=== PATIENT | female | born 1955 | race African-American/Black ===

== ENCOUNTER 2016-09-27 00:02 | Emergency (ER) | payer BC ==
[~2016-09-27] VITALS: Ht 170.2 cm; Wt 93.7 kg
[~2016-09-27 00:02] MED LIST: AFRICAN MANGO PO; AMPHETAMINE SAL10 MG PO; APRESOLINE50 M1 PO; ASPIRIN81 M1 PO; ASPIRIN81 M2 PO; ATARAX,VISTARIL50 MG PO; ATORVASTATIN CA40 MG PO; AVAPRO150 MG PO; BEE WITH C1 EACH PO; BIOTIN300 MCG PO; BLOOD BUILDER PO; CALCIUM 500 +1 EAC3 PO; CALCIUM ACETAT667 M2 PO; CALCIUM ACETAT667 MG PO; CARAFATE1 GM PO; CARDURA XL4 MG PO; CARDURA4 MG PO; CARVEDILOL25 MG PO; CARVEDILOL3.125 MG PO; CATAPRES0.1 MG PO; CLINDAMYCIN HC150 MG PO; CLONIDINE HCL0.1 MG PO; CLOPIDOGREL75 MG PO; CO Q-10100 MG PO; CO Q-10200 MG PO; COLACE100 MG PO; COMPLEX B-1001 EACH PO; CORDYCEPS PO; COREG25 M1 PO; COREG25 MG PO; DIALYVITE 3,001 EACH PO; DIALYVITE 5000 T5 MG PO; DILAUDID2 MG PO; ELIPHOS667 MG PO; EMLA 30 GM30 GM TP; FENOFIBRATE40 MG PO; FENOFIBRATE48 MG PO; FERROUS SULFAT325 MG PO; FLAGYL500 MG PO; FLAX OIL1000 MG PO; FOLIC ACID0.4 MG PO; GABAPENTIN100 MG PO; GABAPENTIN300 MG PO; GARLIC1 EACH PO; GINKGO BILOBA60 M1 PO; GINKGO60 MG PO; HUMALOG; HUMALOG100 UNIT/1 SC; HUMULIN N100 UNIT/2 SC; HYDRALAZINE HCL50 M1 PO; HYDRALAZINE HCL50 MG PO; HYDROXYZINE HCL25 MG PO; HYZAAR 100-21 TABLET PO; IMDUR30 MG PO; INDOCIN25 MG PO; INTEGRA CAPSUL1 EACH PO; IRON240 MG PO; ISOSORBIDE DINI10 MG PO; ISOSORBIDE MONO30 MG PO; Imdur PO; KLOR-CON M2020 MEQ PO; KLOR-CON20 MEQ PO; KRILL OIL500 MG PO; LANOXIN,DIGIT0.25 MG PO; LASIX20 MG PO; LASIX40 MG PO; LIDOCAINE700 MG TD; LIVIXIL PAK 2.1 EACH TP; LYRICA50 MG PO; Lasix PO; Lipitor PO; MAGNESIUM GLUC200 MG PO; MAGNESIUM250 MG PO; MORPHINE SULFAT15 M1 PO; MULTI VITAMIN; MULTI-VITAMIN1 EAC4 PO; MULTIPLE VITAM1 EACH PO; MULTIVITAMIN1 EAC1 PO; MUPIROCIN15 GM TP; MYCOSTATIN 100,60 ML PO; NEPHRO-VITE,1 TABLET PO; NEURONTIN100 MG PO; NITROSTAT0.4 MG SL; NOVOLOG PE100 UNITS/ SC; OXYCODONE HCL5 M1 PO; PANTOPRAZOLE SO40 MG PO; PERCOCET 5/31 TABLET PO; PLAVIX75 MG PO; PRILOSEC40 MG PO; PROBIOTIC FORM1 EACH PO; PROMETHAZINE HC25 M1 PO; PROTONIX40 MG PO; PROVENTIL,2.5 MG/0.5 IH; Plavix PO; RENVELA800 MG PO; SENSIPAR30 MG PO; SENSIPAR60 MG PO; SERTRALINE HCL100 MG PO; SIMVASTATIN40 MG PO; SPIRONOLACTONE25 MG PO; SPIRULINA500 MG PO; TRAMADOL HCL50 MG PO; ULTRAM50 MG PO; VITAMIN B-121000 MC1 SL; VITAMIN B-121000 MCG PO; VITAMIN C PO; VITAMIN C1000 MG PO; VITAMIN D31000 UNI2 PO; VITAMIN D31000 UNIT PO; WELLBUTRIN XL150 MG PO; WELLBUTRIN XL300 MG PO; Wellbutrin XL PO; ZANTAC150 MG PO; ZEMPLAR1 MCG PO; ZOFRAN4 MG PO; ZOLOFT100 M1 PO; ZOLOFT100 MG PO; [UNRECOGNIZED DRUG - OTHER]; [UNRECOGNIZED DRUG - OTHER] PO; [UNRECOGNIZED DRUG - OTHER] PO; [UNRECOGNIZED DRUG - OTHER] PO; [UNRECOGNIZED DRUG - OTHER] PO; [UNRECOGNIZED DRUG - OTHER] PO; [UNRECOGNIZED DRUG - OTHER] PO; [UNRECOGNIZED DRUG - OTHER] PO; [UNRECOGNIZED DRUG - OTHER] PO; [UNRECOGNIZED DRUG - OTHER] PO; [UNRECOGNIZED DRUG - OTHER] PO; [UNRECOGNIZED DRUG - OTHER] PO; [UNRECOGNIZED DRUG - OTHER] PO; [UNRECOGNIZED DRUG - OTHER] PO; [UNRECOGNIZED DRUG - OTHER] SL; [UNRECOGNIZED DRUG - OTHER] SL; [UNRECOGNIZED DRUG - REMARK]; [UNRECOGNIZED DRUG - REMARK]; [UNRECOGNIZED DRUG - REMARK]; [UNRECOGNIZED DRUG - REMARK]; [UNRECOGNIZED DRUG - REMARK]; [UNRECOGNIZED DRUG - REMARK]; [UNRECOGNIZED DRUG - REMARK]; [UNRECOGNIZED DRUG - REMARK]; [UNRECOGNIZED DRUG - REMARK]; [UNRECOGNIZED DRUG - REMARK]; [UNRECOGNIZED DRUG - REMARK]
[2016-09-27 00:47] LABS: HEMATOCRIT 35.8 % (36.0-46.0); MCH 29.4 PG (29.0-34.0); MCHC 32.1 G/DL (30.0-36.0); MCV 91.6 FL (83-99); MEAN PLAT.VOLUME 10.8 uM^3 (9.5-12.4); PLATELET COUNT 167 K/uL (156-360); RBC DIS.WIDTH-CV 16.2 % (11.8-14.6); RBC DIS.WIDTH-SD 53.6 % (39-53); RED BLOOD COUNT 3.91 M/uL (3.80-5.20); WHITE BLOOD COUNT 4.9 K/uL (4.1-10.2)
[2016-09-27 01:00] LABS: CHLORIDE 99 mEq/L (99-109); POTASSIUM 3.7 mEq/L (3.7-5.4); SODIUM 143 mEq/L (136-147)
[2016-09-27 01:02] LABS: GLUCOSE 241 mg/dL (70-99)
[2016-09-27 01:03] LABS: ANION GAP 18 MEQ/L (2-14)
[2016-09-27 01:06] LABS: GFR ESTIMATE (CALCULATED) 5 mL/min/
[2016-09-27 01:07] LABS: UREA NITROGEN (BUN) 54 mg/dL (9-23)
[2016-09-27 02:48] VITALS: BP 121/68
== END 2016-09-27 02:49 | disposition home or self-care (01) ==
LOC: EME 00:02
PROVIDERS: Emergency Medicine
DX: T82.838A Hemorrhage due to vascular prosthetic devices, implants and grafts, initial encounter (principal); D64.9 Anemia, unspecified; I13.0 Hypertensive heart and chronic kidney disease with heart failure and stage 1 through stage 4 chronic kidney disease, or unspecified chronic kidney disease; N18.9 Chronic kidney disease, unspecified; I50.9 Heart failure, unspecified; Z99.2 Dependence on renal dialysis; E11.22 Type 2 diabetes mellitus with diabetic chronic kidney disease; I25.2 Old myocardial infarction; E78.5 Hyperlipidemia, unspecified; K21.9 Gastro-esophageal reflux disease without esophagitis; Z79.4 Long term (current) use of insulin
CPT/HCPCS: 80048; 85027; 99281; 99284

== ENCOUNTER 2016-10-28 10:58 | Day surgery (SDC) | payer BC ==
[~2016-10-28] VITALS: Ht 170.2 cm; Wt 93.0 kg
[~2016-10-28 10:58] MED LIST changes: -ASPIRIN81 M2 PO; +AURYXIA PO; +BIOTIN 5000MCG PO; +CHILD ASPIRIN81 M1 PO; -CLOPIDOGREL75 MG PO; -HUMALOG; +HUMALOG100 UNIT/2 SC; +LIPITOR40 MG PO; +NEURONTIN300 MG PO; +PROAMATINE10 MG PO; +RENA PLEX D PO
[2016-10-28 12:40] VITALS: BP 117/67
[2016-10-28 12:49] LABS: POINT-OF-CARE METER ID UU13113694
[2016-10-28 14:05] LABS: METH RESISTANT S AUREUS PCR NEGATIVE (NEGATIVE)
[2016-10-28 14:08] LABS: PROBE CHECK PASS; SPECIMEN PROCESSING CONTROL PASS
[2016-10-28 14:25] LABS: POINT-OF-CARE METER ID UU13113675
[2016-10-28 15:40] VITALS: BP 150/78
[2016-10-28 17:07] VITALS: BP 134/69
== END 2016-10-28 17:15 | disposition home or self-care (01) ==
LOC: SDC 10:58
PROVIDERS: Orthopaedic Surgery Hand Surgery
DX: G56.02 Carpal tunnel syndrome, left upper limb (principal); G56.22 Lesion of ulnar nerve, left upper limb; I13.0 Hypertensive heart and chronic kidney disease with heart failure and stage 1 through stage 4 chronic kidney disease, or unspecified chronic kidney disease; E11.22 Type 2 diabetes mellitus with diabetic chronic kidney disease; N18.9 Chronic kidney disease, unspecified; I50.9 Heart failure, unspecified; Z79.4 Long term (current) use of insulin; Z79.82 Long term (current) use of aspirin; Z88.2 Allergy status to sulfonamides
CPT/HCPCS: 71020; 82948; 87641; J0690; J2405; J3010; S0020

== ENCOUNTER 2017-06-09 23:40 | Emergency (ER) | payer BC ==
[~2017-06-09] VITALS: Ht 170.2 cm; Wt 92.2 kg
[2017-06-10 02:57] VITALS: BP 135/96
== END 2017-06-10 03:07 | disposition home or self-care (01) ==
LOC: EME 23:40
DX: S40.011A Contusion of right shoulder, initial encounter (principal); S70.01XA Contusion of right hip, initial encounter; E78.5 Hyperlipidemia, unspecified; I12.9 Hypertensive chronic kidney disease with stage 1 through stage 4 chronic kidney disease, or unspecified chronic kidney disease; E11.22 Type 2 diabetes mellitus with diabetic chronic kidney disease; N18.4 Chronic kidney disease, stage 4 (severe); Z99.2 Dependence on renal dialysis; I25.2 Old myocardial infarction; Z95.1 Presence of aortocoronary bypass graft; Z88.2 Allergy status to sulfonamides; Z79.4 Long term (current) use of insulin; Z79.02 Long term (current) use of antithrombotics/antiplatelets; Z79.82 Long term (current) use of aspirin; W17.89XA Other fall from one level to another, initial encounter; Y92.410 Unspecified street and highway as the place of occurrence of the external cause
CPT/HCPCS: 73030; 73502; 99281; 99284

== ENCOUNTER 2017-09-23 07:08 | Day surgery (SDC) | payer BC ==
[~2017-09-23] VITALS: Ht 170.2 cm; Wt 93.0 kg
[~2017-09-23 07:08] MED LIST changes: -AURYXIA PO; +FERRIC CITRATE210 MG PO; -NEURONTIN300 MG PO; +RENAPLEX-D TAB1 EACH PO
== END 2017-09-23 18:05 | disposition home or self-care (01) ==
LOC: CATH 07:08
PROVIDERS: Internal Medicine Interventional Cardiology
DX: I25.119 Atherosclerotic heart disease of native coronary artery with unspecified angina pectoris (principal); I42.9 Cardiomyopathy, unspecified; I34.0 Nonrheumatic mitral (valve) insufficiency; Z95.1 Presence of aortocoronary bypass graft; I13.2 Hypertensive heart and chronic kidney disease with heart failure and with stage 5 chronic kidney disease, or end stage renal disease; I50.22 Chronic systolic (congestive) heart failure; E11.22 Type 2 diabetes mellitus with diabetic chronic kidney disease; N18.6 End stage renal disease; Z99.2 Dependence on renal dialysis; Z79.4 Long term (current) use of insulin; Z79.02 Long term (current) use of antithrombotics/antiplatelets; E78.2 Mixed hyperlipidemia; Z79.82 Long term (current) use of aspirin; Z82.49 Family history of ischemic heart disease and other diseases of the circulatory system
CPT/HCPCS: 82948; 93005; C1769; C1887; C1894; J1644; J2250; J2405; J3010

== ENCOUNTER 2017-09-25 14:28 | Inpatient (IN) | payer BC ==
[~2017-09-25] VITALS: Ht 170.2 cm; Wt 94.5 kg
[2017-09-25 15:24] LABS: BASOPHIL (%) 0.1 % (0-1); EOSINOPHIL (%) 1.9 % (0-5); EOSINOPHIL COUNT 0.2 K/uL (0-0.3); HEMATOCRIT 21.9 % (36.0-46.0); IMMATURE GRANULOCYTE (%) 0.5 % (0.0-0.7); LYMPHOCYTE (%) 19.2 % (15-42); LYMPHOCYTE COUNT 1.5 K/uL (1.0-2.8); MCH 29.1 PG (29.0-34.0); MCHC 32.4 G/DL (30.0-36.0); MCV 89.8 FL (83-99); MONOCYTE (%) 9.9 % (3-12); MONOCYTE COUNT 0.8 K/uL (0-0.8); NEUTROPHIL (%) 68.4 % (45-76); NEUTROPHIL COUNT 5.3 K/uL (1.8-6.4); PLATELET COUNT 137 K/uL (156-360); RBC DIS.WIDTH-CV 16.2 % (11.8-14.6); RBC DIS.WIDTH-SD 53.3 % (39-53); WHITE BLOOD COUNT 7.8 K/uL (4.1-10.2)
[2017-09-25 15:25] LABS: HEMOGLOBIN 7.1 G/DL (11.9-15.5); RED BLOOD COUNT 2.44 M/uL (3.80-5.20)
[2017-09-25 15:33] LABS: INTER. NORMALIZED RATIO 1.3
[2017-09-25 15:34] LABS: ALBUMIN 4.1 g/dL (3.2-4.8); CHLORIDE 94 mEq/L (99-109); POTASSIUM 4.3 mEq/L (3.7-5.4); SODIUM 137 mEq/L (136-147)
[2017-09-25 15:35] LABS: MAGNESIUM 2.1 mg/dL (1.3-2.7)
[2017-09-25 15:36] LABS: PTT 29.2 SEC (25-37)
[2017-09-25 15:37] LABS: GLUCOSE 164 mg/dL (70-99); TOTAL PROTEIN 7.2 g/dL (6.4-8.3)
[2017-09-25 15:39] LABS: TOTAL BILIRUBIN 0.4 mg/dL (0.0-1.0)
[2017-09-25 15:40] LABS: ALKALINE PHOSPHATASE 216 IU/L (3-129); CREATININE 8.7 mg/dL (0.6-1.3); GFR ESTIMATE (CALCULATED) 6 mL/min/
[2017-09-25 15:41] LABS: UREA NITROGEN (BUN) 45 mg/dL (9-23)
[2017-09-25 15:42] LABS: AST (GOT) 14 IU/L (2-34)
[2017-09-25 15:43] LABS: ALT (GPT) 11 IU/L (3-49)
[2017-09-25 15:47] LABS: TROP-I INTERPRETATION NEGATIVE; TROPONIN-I 0.09 ng/mL (0.0-0.30)
[2017-09-25] MEDS ORDERED: HUMULIN N100 UNIT/2 SC (16:52)
[2017-09-25] MEDS ORDERED: OXYCODONE-ACET1 EACH PO (16:56)
[2017-09-25] MEDS ORDERED: LIDOCAINE-PRIL1 EACH TP (16:57)
[2017-09-25 23:00] VITALS: BP 134/63
[2017-09-25 23:06] LABS: TROP-I INTERPRETATION NEGATIVE
[2017-09-26 01:17] LABS: HEMATOCRIT 22.2 % (36.0-46.0); HEMOGLOBIN 7.3 G/DL (11.9-15.5); MCV 89.2 FL (83-99)
[2017-09-26 03:15] VITALS: BP 138/60
[2017-09-26 06:29] LABS: HEMOGLOBIN 7.1 G/DL (11.9-15.5); MCH 28.7 PG (29.0-34.0); MCHC 32.3 G/DL (30.0-36.0); MCV 89.1 FL (83-99); PLATELET COUNT 152 K/uL (156-360); RBC DIS.WIDTH-CV 16.2 % (11.8-14.6); RBC DIS.WIDTH-SD 52.4 % (39-53); RED BLOOD COUNT 2.47 M/uL (3.80-5.20); WHITE BLOOD COUNT 7.1 K/uL (4.1-10.2)
[2017-09-26 06:45] LABS: TROP-I INTERPRETATION NEGATIVE; TROPONIN-I 0.12 ng/mL (0.0-0.30)
[2017-09-26 06:50] LABS: CHLORIDE 92 MEQ/L (99-109); CREATININE 9.4 MG/DL (0.6-1.3); GFR ESTIMATE (CALCULATED) 5 mL/min/; POTASSIUM 4.6 MEQ/L (3.7-5.4); SODIUM 136 MEQ/L (136-147); UREA NITROGEN (BUN) 50 mg/dL (9-23)
[2017-09-26 07:03] LABS: GLUCOSE 77 mg/dL (70-99)
[2017-09-26 07:07] VITALS: BP 127/61
[2017-09-26 12:45] LABS: HEMATOCRIT 23.4 % (36.0-46.0); HEMOGLOBIN 7.4 G/DL (11.9-15.5); MCV 89.7 FL (83-99)
[2017-09-26 12:52] VITALS: BP 117/60
[2017-09-26 15:09] VITALS: BP 119/57
[2017-09-26 20:30] VITALS: BP 143/75
[2017-09-26 21:38] LABS: HEMATOCRIT 20.5 % (36.0-46.0); MCV 89.1 FL (83-99)
[2017-09-26 21:40] LABS: HEMOGLOBIN 6.5 G/DL (11.9-15.5)
[2017-09-27 00:49] VITALS: BP 124/66
[2017-09-27 03:53] VITALS: BP 127/64
[2017-09-27 09:01] LABS: ALBUMIN 4.1 G/DL (3.2-4.8); CHLORIDE 90 MEQ/L (99-109); POTASSIUM 4.7 MEQ/L (3.7-5.4); SODIUM 134 MEQ/L (136-147)
[2017-09-27 09:08] LABS: GFR ESTIMATE (CALCULATED) 4 mL/min/; PHOSPHORUS 4.7 mg/dL (2.5-4.9); UREA NITROGEN (BUN) 67 mg/dL (9-23)
[2017-09-27 09:13] LABS: CREATININE 11.8 MG/DL (0.6-1.3); GLUCOSE 115 mg/dL (70-99)
[2017-09-27 09:14] LABS: HEMATOCRIT 19.8 % (36.0-46.0); MCV 89.2 FL (83-99)
[2017-09-27 09:16] LABS: HEMOGLOBIN 6.3 G/DL (11.9-15.5)
[2017-09-27 12:25] VITALS: BP 121/57
[2017-09-27 13:29] LABS: HEMATOCRIT 30.6 % (36.0-46.0); MCV 86.7 FL (83-99)
[2017-09-27] MEDS ORDERED: FENTORA400 MCG BC (13:58)
[2017-09-27 14:21] VITALS: BP 121/57
[2017-09-27] MEDS ORDERED: DURAGESIC25 MCG TD (15:43)
== END 2017-09-27 14:28 | disposition home or self-care (01) | DRG 919 ==
LOC: EME 14:28 → EDOF 21:04 → 2EAST 21:04 → ENRESERV 21:07 → 2EAST 22:45
PROVIDERS: Emergency Medicine; Hospitalist; Internal Medicine
PROC: 5A1D70Z Performance of Urinary Filtration, Intermittent, Less than 6 Hours Per Day (ICD-10-PCS; principal; 2017-09-25)
PROC: 30233N1 Transfusion of Nonautologous Red Blood Cells into Peripheral Vein, Percutaneous Approach (ICD-10-PCS; 2017-09-27)
DX: N99.841 Postprocedural hematoma of a genitourinary system organ or structure following other procedure (principal); Y83.8 Other surgical procedures as the cause of abnormal reaction of the patient, or of later complication, without mention of misadventure at the time of the procedure; E78.5 Hyperlipidemia, unspecified; I13.2 Hypertensive heart and chronic kidney disease with heart failure and with stage 5 chronic kidney disease, or end stage renal disease; I50.9 Heart failure, unspecified; N28.89 Other specified disorders of kidney and ureter; E11.22 Type 2 diabetes mellitus with diabetic chronic kidney disease; N18.6 End stage renal disease; D62 Acute posthemorrhagic anemia; D63.1 Anemia in chronic kidney disease; I25.10 Atherosclerotic heart disease of native coronary artery without angina pectoris; I25.5 Ischemic cardiomyopathy; E11.51 Type 2 diabetes mellitus with diabetic peripheral angiopathy without gangrene; K59.00 Constipation, unspecified; N25.81 Secondary hyperparathyroidism of renal origin; E66.01 Morbid (severe) obesity due to excess calories; D25.9 Leiomyoma of uterus, unspecified; S36.81XA Injury of peritoneum, initial encounter; N27.1 Small kidney, bilateral; N28.1 Cyst of kidney, acquired; I25.2 Old myocardial infarction; Z95.1 Presence of aortocoronary bypass graft; Z88.2 Allergy status to sulfonamides; Z90.49 Acquired absence of other specified parts of digestive tract; Z68.32 Body mass index [BMI] 32.0-32.9, adult; Z88.5 Allergy status to narcotic agent; Z99.2 Dependence on renal dialysis; Z91.048 Other nonmedicinal substance allergy status
CPT/HCPCS: 74177; 80048; 80053; 80069; 81003; 82948; 83605; 83735; 84484; 85014; 85018; 85025; 85027; 85610; 85730; 86850; 86900; 86901; 86920; 93005; 99281; 99285; C1769; C1887; C1894; J1644; J2250; J2405; J3010; P9016